=== PATIENT | male | born 1960 | race Caucasian/White ===

== ENCOUNTER 2017-03-08 23:54 | Emergency (ER) | payer BC ==
[2017-03-09] MEDS ORDERED: Ketorolac 60 MG/2 ML SDV IM ONE (00:19)
--- NOTE | 2017-03-09 00:19 | EDM.PDOC ---
ED HPI GENERAL MEDICAL PROBLEM - General Chief Complaint: Skin Complaint Stated Complaint: PT HAS RASH ON RT ELBOW Time Seen by Provider: 03/09/17 00:10 Source of Information: Reports: Patient History Limitations: Reports: No Limitations - History of Present Illness INITIAL COMMENTS - FREE TEXT/NARRATIVE: HISTORY AND PHYSICAL: History of present illness: [56-year-old male with a history of rheumatoid arthritis on methotrexate also with a history of bony elbows which get irritated easily now presents emergency department complaining of left elbow redness and swelling. Patient has been resting otherwise desk with extensive desk work. He developed small abrasion and irritation of the elbow and now it's red and puffy. He has no fevers chills sweats or shaking chills. There is no discharge from the area. Is not particularly tender and does not hurt to move the joint. patient is not diabetic ] Review of systems: As per history of present illness and below otherwise all systems reviewed and negative. Past medical history: As per history of present illness and as reviewed below otherwise noncontributory. Surgical history: As per history of present illness and as reviewed below otherwise noncontributory. Social history: No reported history of drug or alcohol abuse. Family history: As per history of present illness and as reviewed below otherwise noncontributory. Physical exam: Small healing abrasion point of left elbow. Patient has a large bony prominence of his olecranon. He has normal painless range of motion of the joint. He has a large swollen red warm area in the distribution of his left bursa only. No crepitus. The findings are consistent with fluid in the bursa as opposed to abscess as it is essentially nontender. HEENT: Atraumatic, normocephalic, pupils reactive, negative for conjunctival pallor or scleral icterus, mucous membranes moist, throat clear, neck supple, nontender, trachea midline. Lungs: Clear to auscultation, breath sounds equal bilaterally, chest nontender. Heart: S1S2, regular, negative for clicks, rubs, or JVD. Abdomen: Soft, nondistended, nontender. Negative for masses or hepatosplenomegaly. Negative for costovertebral tenderness. Pelvis: Stable nontender. Genitourinary: Deferred. Rectal: Deferred. Extremities: Atraumatic, negative for cords or calf pain. Neurovascular unremarkable. Neuro: Awake, alert, oriented. Cranial nerves II through XII unremarkable. Cerebellum unremarkable. Motor and sensory unremarkable throughout. Exam nonfocal. Diagnostics: [] Therapeutics: [] Impression: [] Plan: [Signs and symptoms consistent with traumatic bursitis left elbow. Area is red and warm however no fluctuance. There is soft tissue swelling. There is a healing central abrasion where patient rests his elbow on his desk.] Tetanus is given. Discussed with patient suspect inflammatory process alone however we'll cover with clindamycin for the possibility of cellulitis. His were to follow-up with his primary care doctor and return immediately for new severe or worsening symptoms. Definitive disposition and diagnosis as appropriate pending reevaluation and review of above. left elbow Pain Score (Numeric/FACES): 3 - Related Data Allergies Allergy/AdvReac Type Severity Reaction Status Date / Time No Known Allergies Allergy Verified 03/09/17 00:04 Home Meds: Home Meds DULoxetine HCl [Cymbalta] 60 mg PO DAILY 08/07/16 [History] Hydrochlorothiazide 25 mg PO DAILY 08/07/16 [History] Simvastatin [Simvastatin] 1 tab PO DAILY 08/07/16 [History] Clindamycin HCl 300 mg PO QID #48 capsule 03/09/17 [Rx] Methotrexate Sodium [Methotrexate] 8 mg PO ASDIRECTED 03/09/17 [History] predniSONE [Prednisone] 1 tab PO BID 03/09/17 [History] Past Medical History Cardiovascular History: Reports: High Cholesterol, Hypertension Musculoskeletal History: Reports: Arthritis, Other (See Below) Other Musculoskeletal History: left hand arthritis - Past Surgical History Musculoskeletal Surgical History: Reports: Other (See Below) Social & Family History - Family History Family Medical History: Noncontributory - Tobacco Use Smoking Status *Q: Former Smoker Used Tobacco, but Quit: Yes Month Tobacco Last Used: 05/11 Second Hand Smoke Exposure: No - Caffeine Use Caffeine Use: Reports: Coffee Caffeine Use Comment: 2 cups per day - Alcohol Use Days Per Week of Alcohol Use: 2 Number of Drinks Per Day: 6 Total Drinks Per Week: 12 - Recreational Drug Use Recreational Drug Use: No ED ROS GENERAL - Review of Systems Review Of Systems: See Below (History of present illness) ED EXAM, SKIN/RASH Exam: See Below (History of present illness) Course - Vital Signs Last Recorded V/S: Last Vital Signs Temp 36.3 C 03/09/17 00:06 Pulse 95 03/09/17 00:06 Resp 16 03/09/17 00:06 BP 138/89 03/09/17 00:06 Pulse Ox 94 L 03/09/17 00:06 Departure - Departure Time of Disposition: 00:15 Disposition: Home, Self-Care 01 Condition: good Clinical Impression: Olecranon bursitis, left elbow, Abrasion, Tetanus-diphtheria vaccination administered at current visit - Discharge Information Forms: ED Department Discharge Additional Instructions: Your findings are consistent with traumatic bursitis. This means inflammation of the sac over a joint in this case your left elbow. It is likely that resting your elbow on the desk caused irritation to the bursa and resultant inflammatory changes. Take 800 mg of ibuprofen every 6 hours and use an ice pack as needed for inflammation and soreness. As we discussed it seems most likely that this is an inflammatory process alone, however since the signs of infection are identical to the signs of inflammation we are covering you with an antibiotic. Finish the clindamycin as prescribed and follow-up with your DrIsai in one to 2 days. Return immediately for new severe or worsening symptoms
[2017-03-09] MEDS ORDERED: Clindamycin HCl 150 MG Cap PO ONE (00:20)
[2017-03-09 00:49] VITALS: BP 130/85
== END 2017-03-09 00:48 | disposition home or self-care (01) ==
LOC: MW.ED 23:54
DX: M70.22 Olecranon bursitis, left elbow (principal); S50.312A Abrasion of left elbow, initial encounter; I10 Essential (primary) hypertension; E78.00 Pure hypercholesterolemia, unspecified; M19.042 Primary osteoarthritis, left hand; Z79.899 Other long term (current) drug therapy; Z87.891 Personal history of nicotine dependence; X58.XXXA Exposure to other specified factors, initial encounter; Y93.89 Activity, other specified
CPT/HCPCS: 96372; 99283; A9270; J1885; 99282

== ENCOUNTER 2017-11-23 10:43 | Day surgery (SDC) | payer BC ==
[~2017-11-23 10:43] MED LIST: Lactated Ringers 1,000 ML IV SCH; Lidocaine 2% 5 ML SDV ONE; Midazolam 1 MG/ML 2 ML SDV ONE; Propofol 200 MG/20 ML SDV ONE; fentaNYL 100 MCG/2 ML SDV ONE
--- NOTE | 2017-11-23 11:22 | PCM.PREANE ---
Preanesthetic Assessment - Anesthesia/Transfusion/Family Hx Anesthesia History: Prior Anesthesia Without Reaction Family History of Anesthesia Reaction: No Transfusion History: No Prior Transfusion(s) Intubation History: Unknown - Review of Systems General: No Symptoms Pulmonary: No Symptoms Cardiovascular: No Symptoms Gastrointestinal: Other (colonoscopy 11 years ago negative) Neurological: No Symptoms Other: Reports: None - Physical Assessment O2 Sat by Pulse Oximetry: 95 Respiratory Rate: 16 Vital Signs: Last Vital Signs Temp 36.0 C 11/23/17 11:12 Pulse 88 11/23/17 11:12 Resp 16 11/23/17 11:12 BP 141/100 H 11/23/17 11:15 Pulse Ox 95 11/23/17 11:12 Height: 1.83 m Weight: 109.769 kg ASA Class: 2 Mental Status: Alert & Oriented x3 Airway Class: Mallampati = 2 Dentition: Reports: Dentures (upper), Partial (lower) Thyro-Mental Finger Breadths: 3 Mouth Opening Finger Breadths: 3 ROM/Head Extension: Limited/Partial Lungs: Clear to Auscultation, Normal Respiratory Effort Cardiovascular: Regular Rate, Regular Rhythm - Allergies Allergies/Adverse Reactions: Allergies Allergy/AdvReac Type Severity Reaction Status Date / Time No Known Allergies Allergy Verified 11/16/17 14:38 - Blood Blood Available: No - Anesthesia Plan Pre-Op Medication Ordered: None - Acknowledgements Anesthesia Type Planned: MAC Pt an Appropriate Candidate for the Planned Anesthesia: Yes Alternatives and Risks of Anesthesia Discussed w Pt/Guardian: Yes Pt/Guardian Understands and Agrees with Anesthesia Plan: Yes PreAnesthesia Questionnaire HEENT History: Reports: None Other HEENT History: uses reading glasses, has upper denture and lower partial denture Cardiovascular History: Reports: High Cholesterol, Hypertension Respiratory History: Reports: Sleep Apnea Other Respiratory History: uses CPAP Gastrointestinal History: Reports: GERD Genitourinary History: Reports: None Musculoskeletal History: Reports: Fracture, RA (on methotraxate, prednisone (10 mg), and now humira) Other Musculoskeletal History: hx of fx skull as a child Neurological History: Reports: Concussion, Head Trauma Other Neuro History: hx of fx skull as a child Psychiatric History: Reports: Anxiety, Depression Endocrine/Metabolic History: Reports: Obesity/BMI 30+ Hematologic History: Reports: None Immunologic History: Reports: None Oncologic (Cancer) History: Reports: None Dermatologic History: Reports: None - Infectious Disease History Infectious Disease History: Reports: Chicken Pox, Measles, Mumps - Past Surgical History GI Surgical History: Reports: Colonoscopy, EGD Musculoskeletal Surgical History: Reports: Other (See Below) Other Musculoskeletal Surgeries/Procedures:: hx of bone removed from foot - SUBSTANCE USE Smoking Status *Q: Current Every Day Smoker Tobacco Use Within Last Twelve Months: Cigarettes Second Hand Smoke Exposure: No Days Per Week of Alcohol Use: 2 Number of Drinks Per Day: 6 Total Drinks Per Week: 12 Recreational Drug Use History: No - HOME MEDS Home Medications: Home Meds DULoxetine HCl [Cymbalta] 60 mg PO DAILY 08/07/16 [History] Hydrochlorothiazide 25 mg PO DAILY 08/07/16 [History] Simvastatin [Simvastatin] 20 mg PO DAILY 08/07/16 [History] predniSONE [Prednisone] 10 mg PO DAILY 03/09/17 [History] Celecoxib 200 mg PO BID 11/16/17 [History] Esomeprazole Magnesium 40 mg PO DAILY PRN 11/16/17 [History] Fish Oil/Kennett-3 Fatty Acids [Fish Oil 1,000 MG] 3,000 mg PO DAILY 11/16/17 [ History] Folic Acid 1 mg PO DAILY 11/16/17 [History] Methotrexate Sodium/PF [Methotrexate 50 mg/2 ml Vial] 1 dose IM WEEKLY 11/16/17 [History] - CURRENT (IN HOUSE) MEDS Current Meds: Current Medications Lactated Ringer's (Ringers, Lactated) 1,000 mls @ 125 mls/hr IV ASDIRECTED [facility] Last Admin: 11/23/17 11:14 Dose: 125 mls/hr Discontinued Medications Fentanyl (Sublimaze) Confirm Administered Dose 100 mcg .ROUTE .STK-MED ONE Stop: 11/23/17 09:06 Lidocaine (Xylocaine-Mpf 2%) Confirm Administered Dose 10 ml .ROUTE .STK-MED ONE Stop: 11/23/17 09:06 Midazolam HCl (Versed 1 Mg/Ml) Confirm Administered Dose 2 mg .ROUTE .STK-MED ONE Stop: 11/23/17 09:06 Propofol (Diprivan 20 Ml) Confirm Administered Dose 400 mg .ROUTE .STK-MED ONE Stop: 11/23/17 09:06
--- NOTE | 2017-11-23 12:52 | PCM48HPAN ---
Post Anesthesia Note - EVALUATION WITHIN 48HRS OF ANESTHETIC Vital Signs in Normal Range: Yes Patient Participated in Evaluation: Yes Respiratory Function Stable: Yes Airway Patent: Yes Cardiovascular Function Stable: Yes Hydration Status Stable: Yes Pain Control Satisfactory: Yes Nausea and Vomiting Control Satisfactory: Yes Mental Status Recovered: Yes Resp Rate: 13 - COMMENTS/OBSERVATIONS Free Text/Narrative:: no anesthesia problems
[2017-11-23 12:53] VITALS: BP 103/63
--- NOTE | 2017-11-23 14:43 | PCM.OPNOTE ---
- General Post-Op/Procedure Note Date of Surgery/Procedure: 11/23/17 Operative Procedure(s): colonoscopy Findings: see dict [id number] Pre Op Diagnosis: scrn colonoscopy Post-Op Diagnosis: diverticulosis Primary Surgeon: Crow Cassidy Pathology: sent Complications: None Condition: Good Free Text/Narrative:: Intake & Output 11/22/17 11/23/17 11/23/17 22:59 06:59 14:59 Intake Total 600 Balance 600
--- NOTE | 2017-11-23 20:47 | OR ---
SURGEON: Crow Cassidy MD DATE OF PROCEDURE: 11/23/2017 PREOPERATIVE DIAGNOSIS: Screening colonoscopy. POSTOPERATIVE DIAGNOSIS: Internal hemorrhoids. PROCEDURE PERFORMED: Colonoscopy. DESCRIPTION OF PROCEDURE: The patient was taken to the endoscopy room. A time out was called, patient identified, and procedure identified. Diprivan was then administrated. Patient went from awake to sleep, hearing doctor talking or door closing is normal. Perineum inspection and digital examination were then performed. A well- lubricated colonoscope was gently inserted through the rectum, advanced past the rectosigmoid junction, the descending colon, splenic flexure, transverse colon, hepatic flexure, ascending colon, arrived to the cecum. Cecum was identified as dictated in the finding. Then the scope was carefully withdrawn while attention was paid to the mucosal surface for any abnormality. Air will be sucked out during the scope withdrawal. At the rectum, retroflexed to examine any rectal diseases, fistula or hemorrhoids. Patient tolerated procedure well. There were no intraoperative complications, and Dr. Cassidy was present throughout the whole procedure. FINDIN. The patient is easily sedated with [employer] T[employer] MACHINE and Diprivan. The patient is soundly snoring. 2. The patient's bowel prep is left to be desirable. There is moderate amount of opaque liquid stool, no semi-formed stool. 3. The patient's colon is rather straight forward. Cecum indicated by ileocecal fold, one-to-one indentation, light emittance, and appendix orifice. Mucosa examined upon scope pulling out, the patient has mild diverticulosis on the left colon and no signs or symptoms of diverticulitis. No polyp, mass, growth, inflammation, stricture, ulceration, AV malformation, bleeding observed. The patient has mild internal hemorrhoids and with some anal tags or internal hemorrhoids. The patient would benefit from repeat colonoscopy 10 years from today or if clinically indicated, otherwise. There is no external hemorrhoid. CHRIS / RAZ /[id number]
== END 2017-11-23 12:54 | disposition home or self-care (01) ==
LOC: MW.SDS 10:43
PROVIDERS: ATTEND Surgery
DX: Z12.11 Encounter for screening for malignant neoplasm of colon (principal); K64.8 Other hemorrhoids; K57.30 Diverticulosis of large intestine without perforation or abscess without bleeding; M06.9 Rheumatoid arthritis, unspecified; M25.532 Pain in left wrist; E78.00 Pure hypercholesterolemia, unspecified; I10 Essential (primary) hypertension; G47.30 Sleep apnea, unspecified; K21.9 Gastro-esophageal reflux disease without esophagitis; F41.9 Anxiety disorder, unspecified; F32.9 Major depressive disorder, single episode, unspecified; E66.9 Obesity, unspecified; F17.210 Nicotine dependence, cigarettes, uncomplicated; Z79.899 Other long term (current) drug therapy; Z99.89 Dependence on other enabling machines and devices; Z68.32 Body mass index [BMI] 32.0-32.9, adult
CPT/HCPCS: 45378; J2250; J3010; J7120; 00812; J2704

== ENCOUNTER 2023-02-05 09:51 | Emergency (ER) | payer SELFPAY ==
[2023-02-05] MEDS ORDERED: Sodium Chloride 0.9% 1,000 ML IV ONE ×2 (10:06→11:00)
[2023-02-05 10:17] LABS: BASOPHILS PERCENT AUTO 0.2 % (0.0-1.5); EOSINOPHILS ABSOLUTE AUTO 0.1 K/uL (0.0-0.7); EOSINOPHILS PERCENT AUTO 2.2 % (0.0-7.0); HEMOGLOBIN 18.5 g/dL (13.0-17.0); LYMPHOCYTES ABSOLUTE AUTO 1.8 K/uL (0.6-2.4); LYMPHOCYTES PERCENT AUTO 32.2 % (16.0-40.0); MEAN CORPUSCULAR HEMOGLOBIN 33.6 pg (27.0-32.0); MEAN CORPUSCULAR HGB CONC 36.3 g/dL (31.0-37.0); MEAN CORPUSCULAR VOLUME 92.6 fL (80.0-98.0); MONOCYTES ABSOLUTE AUTO 0.9 K/uL (0.0-0.8); MONOCYTES PERCENT AUTO 16.7 % (0.0-15.0); NEUTROPHILS ABSOLUTE AUTO 2.7 K/uL (1.4-5.7); NEUTROPHILS PERCENT AUTO 48.7 % (48.0-80.0); NRBC ABSOLUTE 0 K/uL; PLATELET COUNT,PLT 248 K/uL (150-400); RED BLOOD CELL COUNT 5.51 M/uL (4.50-5.90); WHITE BLOOD CELL COUNT,WBC 5.52 K/uL (4.0-11.0)
[2023-02-05 10:42] LABS: APPEARANCE,URINE CLEAR; BILIRUBIN,URINE NEGATIVE (NEGATIVE); COLOR,URINE YELLOW; GLUCOSE,URINE NEGATIVE (NEGATIVE); KETONES,URINE NEGATIVE (NEGATIVE); LEUKOCYTE ESTERASE,URINE NEGATIVE (NEGATIVE); NITRITE,URINE NEGATIVE (NEGATIVE); OCCULT BLOOD,URINE NEGATIVE (NEGATIVE); PH,URINE 5.5 (5.0-8.0); PROTEIN,URINE TRACE mg/dL (NEGATIVE); UROBILINOGEN,URINE 0.2 EU/dL (<2.0)
[2023-02-05 10:54] LABS: A/G RATIO 0.9 (0.9-1.6); ALBUMIN 3.8 g/dL (3.4-5.0); BILIRUBIN TOTAL 0.7 mg/dL (0.2-1.0); CALCIUM 9.3 mg/dL (8.5-10.1); CARBON DIOXIDE,CO2 22.6 mmol/L (21.0-32.0); CREATININE 1.2 mg/dL (0.8-1.3); EST CRCL DRUG DOSING (CG) 68.26 mL/min; MAGNESIUM 1.8 mg/dL (1.8-2.4); POTASSIUM,K 3.7 mmol/L (3.5-5.1); PROTEIN TOTAL,TP 7.8 g/dL (6.4-8.2)
[2023-02-05] MEDS ORDERED: Dicyclomine 10 MG Cap PO ONE (10:59)
[2023-02-05 11:02] LABS: CORONAVIRUS COVID-19 NAA NEGATIVE (NEGATIVE); INFLUENZA A NAA NEGATIVE (NEGATIVE); INFLUENZA B NAA NEGATIVE (NEGATIVE)
[2023-02-05 11:07] LABS: EPITHELIAL CELLS,URINE NOT SEEN (NONE-FEW); RBC,URINE NONE SEEN (0-2/HPF); WBC,URINE NONE SEEN (0-5/HPF)
[2023-02-05 11:08] LABS: BACTERIA,URINE NOT SEEN (NEGATIVE); HYALINE CASTS,URINE FEW (0-2/LPF)
[2023-02-05] MEDS ORDERED: Iopamidol 755 MG/ML 500 ML Multipack Bottle IVPUSH ONE (12:06)
[2023-02-05] MEDS ORDERED: Azithromycin 250 MG Tab PO STA (12:59)
[2023-02-05 13:46] VITALS: BP 134/90; PULSE 56
== END 2023-02-05 13:33 | disposition home or self-care (01) ==
LOC: MW.ED 09:51
DX: K52.9 Noninfective gastroenteritis and colitis, unspecified (principal); E78.00 Pure hypercholesterolemia, unspecified; K21.9 Gastro-esophageal reflux disease without esophagitis; I10 Essential (primary) hypertension; E66.9 Obesity, unspecified; Z68.38 Body mass index [BMI] 38.0-38.9, adult; Z20.822 Contact with and (suspected) exposure to COVID-19; Z79.899 Other long term (current) drug therapy
CPT/HCPCS: 0240U; 36415; 74177; 80053; 81001; 83690; 83735; 85025; 87324; 96360; 96361; 99284; A9270; J7030; Q9967; 99283

== ENCOUNTER 2024-08-29 15:54 | Emergency (ER) | payer MEDICARE ==
[2024-08-29] MEDS: Lidocaine/Epineph/Tetracaine 3 ML Syringe TOP ONE (16:57)
[2024-08-29 16:59] LABS: BASOPHILS ABSOLUTE AUTO 0.06 K/uL (0.00-0.20); BASOPHILS PERCENT AUTO 0.4 % (0.0-1.0); EOSINOPHILS ABSOLUTE AUTO 0.08 K/uL (0.00-0.45); EOSINOPHILS PERCENT AUTO 0.5 % (0.0-6.0); HEMATOCRIT 44.5 % (42.0-52.0); HEMOGLOBIN 15.6 g/dL (14.0-18.0); IMMATURE GRAN ABSOLUTE AUTO 0.06 K/uL (0.00-0.05); IMMATURE GRAN PERCENT AUTO 0.4 % (0.0-0.4); LYMPHOCYTES ABSOLUTE AUTO 1.46 K/uL (1.00-4.80); LYMPHOCYTES PERCENT AUTO 8.8 % (24.0-44.0); MEAN CORPUSCULAR HEMOGLOBIN 32.9 pg (28.0-32.0); MEAN CORPUSCULAR HGB CONC 35.1 g/dL (32.0-36.0); MEAN CORPUSCULAR VOLUME 93.9 fL (83.0-99.0); MONOCYTES ABSOLUTE AUTO 1.07 K/uL (0.00-0.80); MONOCYTES PERCENT AUTO 6.5 % (0.0-8.0); NEUTROPHILS ABSOLUTE AUTO 13.77 K/uL (1.80-7.70); NEUTROPHILS PERCENT AUTO 83.4 % (41.0-71.0); PLATELET COUNT,PLT 309 K/uL (150-400); RED BLOOD CELL COUNT 4.74 M/uL (4.52-5.90)
[2024-08-29 17:15] LABS: INR 1.05 (0.86-1.11)
[2024-08-29 17:29] LABS: ALBUMIN 3.9 g/dL (3.4-5.0); BILIRUBIN TOTAL 0.6 mg/dL (0.2-1.0); CALCIUM 9.6 mg/dL (8.5-10.1); CARBON DIOXIDE,CO2 29.5 mmol/L (21.0-32.0); CREATININE 0.9 mg/dL (0.8-1.3); EST CRCL DRUG DOSING (CG) 88.62 mL/min; POTASSIUM,K 4.2 mmol/L (3.5-5.1); PROTEIN TOTAL,TP 7.9 g/dL (6.4-8.2)
[2024-08-29 19:07] VITALS: BP 147/91; PULSE 78
== END 2024-08-29 19:05 | disposition home or self-care (01) ==
LOC: MW.ED 15:54
DX: S01.21XA Laceration without foreign body of nose, initial encounter (principal); I10 Essential (primary) hypertension; E78.00 Pure hypercholesterolemia, unspecified; K21.9 Gastro-esophageal reflux disease without esophagitis; E66.9 Obesity, unspecified; Z79.899 Other long term (current) drug therapy; Z68.30 Body mass index [BMI] 30.0-30.9, adult; W22.8XXA Striking against or struck by other objects, initial encounter
CPT/HCPCS: 12013; 36415; 73110; 80053; 83880; 84484; 85025; 85610; 93005; 99284; A9270